=== PATIENT | female | born 2000 | race Caucasian/White ===

== ENCOUNTER 2022-03-01 06:03 | Emergency (ER) | payer BC, OTHER ==
[~2022-03-01] VITALS: Ht 152.4 cm; Wt 81.6 kg
[2022-03-01 06:08] VITALS: BP 138/72
--- NOTE | 2022-03-01 06:17 | NUR ---
pt assessment completed by margoth. no nursing interventions required at this time.
[2022-03-01] MEDS ORDERED: PRED20TA5 PO (07:16)
[2022-03-01] MEDS ORDERED: ALBU0.0912 IH (07:16)
[2022-03-01 07:33] VITALS: BP 121/70
--- NOTE | 2022-03-01 07:34 | NUR ---
Patient discharged with v/s stable. Written and verbal after care instructions ABOUT SMOKING TOBACCO AND ACUTE BRONCHITIS given and explained. Patient alert, oriented and verbalized understanding of instructions. Ambulatory with steady gait. All questions addressed prior to discharge. ID band removed. Patient advised to follow up with PMD. Rx of PREDNISONE, ALBUTEROL SULFATE given. Patient educated on indication of medication including possible reaction and side effects. Opportunity to ask questions provided and answered.
== END 2022-03-01 07:34 | disposition home or self-care (01) ==
LOC: MED 06:03
DX: J20.9 Acute bronchitis, unspecified (principal); F12.90 Cannabis use, unspecified, uncomplicated; Z79.899 Other long term (current) drug therapy
CPT/HCPCS: 71045; 99283